=== PATIENT | male | born 1965 | race African-American/Black ===

== ENCOUNTER 2016-11-11 20:18 | Inpatient (IN) | payer OTHER ==
[~2016-11-11] VITALS: Ht 175.3 cm; Wt 70.5 kg
[2016-11-11 20:35] LABS: GLUCOSE,POINT OF CARE 154 MG/DL (70-110)
[2016-11-11] MEDS ORDERED: MULT1CAP32 PO (20:45)
[2016-11-11] MEDS ORDERED: FOLI1 PO (20:45)
[2016-11-11] MEDS ORDERED: CYAN500 PO (20:45)
[2016-11-11] MEDS ORDERED: MAGNESIUM SULFATE 2 GM, MVI, ADULT NO.1 WITH VIT K 10 ML, THIAMINE HCL 100 MG, FOLIC AC... IV ONE ×5 (20:45)
[2016-11-11] MEDS ORDERED: HALO2 PO (20:45)
[2016-11-11] MEDS ORDERED: FERR-89 PO (20:45)
[2016-11-11] MEDS ORDERED: THIA100 PO (20:45)
[2016-11-11 21:01] LABS: BASOPHILS % (AUTO) 0.7 % (0.0-2.0); EOSINOPHILS % (AUTO) 0.7 % (1.0-6.0); HEMATOCRIT 34.4 % (41-53); HEMOGLOBIN 11.2 g/dL (13.5-17.5); LYMPHOCYTES % (AUTO) 13.2 % (22.0-44.0); MEAN CORPUSCULAR HEMOGLOBIN 29.3 pg (26.0-34.0); MEAN CORPUSCULAR HGB CONC 32.4 G/dL (31.0-37.0); MEAN CORPUSCULAR VOLUME 90 fL (80-100); MONOCYTES # (AUTO) 0.3 K/uL (0.1-1.0); MONOCYTES % (AUTO) 4.3 % (2.0-9.0); NEUTROPHILS % (AUTO) 81.1 % (40.0-70.0); PLATELET COUNT (AUTO) 189 K/uL (150-450); RED BLOOD CELL COUNT(AUTO) 3.81 MIL/uL (4.50-5.90); RED CELL DISTRIBUTION WIDTH 14.9 % (11.5-14.5); WHITE BLOOD COUNT (AUTO) 7.3 K/uL (4.5-11.0)
[2016-11-11 21:11] LABS: ANION GAP 24 mmol/L (8-16); CALCIUM, TOTAL 8.9 mg/dL (8.8-10.5); CARBON DIOXIDE 15 mmol/L (22-29); CHLORIDE 94 mmol/L (98-107); CREATININE 1.09 mg/dL (0.60-1.30); GLOMERULAR FILTR. RATE CALC > 60 mL/min (>60); POTASSIUM 3.9 mmol/L (3.5-5.1); SODIUM SERUM 133 mmol/L (136-145); UREA NITROGEN, BLOOD 7 mg/dL (7-18)
[2016-11-11] MEDS ORDERED: OxyCODONE HCL/ACETAMINOPHEN 5-325 MG TABLET PO PRN (21:15)
[2016-11-11] MEDS ORDERED: ACETAMINOPHEN 325 MG TABLET PO PRN (21:15)
[2016-11-11 21:17] LABS: ALANINE AMINOTRANSFERASE 19 U/L (12-78); ALBUMIN 3.7 g/dL (3.4-5.0); ASPARTATE AMINOTRANSFERASE 26 U/L (15-37); BILIRUBIN,TOTAL 0.2 mg/dL (0.1-1.0); TOTAL PROTEIN, SERUM 7.5 g/dL (6.4-8.2)
[2016-11-11] MEDS ORDERED: LORazepam 2 MG/ML VIAL IVP ONE (22:30)
[2016-11-11 23:33] VITALS: BP 122/74
[2016-11-12] MEDS: HEPARIN SODIUM,PORCINE 5,000 UNITS/ML VIAL SQ SCH ×4 (00:01→23:24)
[2016-11-12 04:20] VITALS: BP 122/75
[2016-11-12 07:49] VITALS: BP 130/76
[2016-11-12] MEDS ORDERED: MAGNESIUM SULFATE 2 GM, MVI, ADULT NO.1 WITH VIT K 10 ML, THIAMINE HCL 100 MG, FOLIC AC... IV ONE ×5 (08:45)
[2016-11-12] MEDS: PANTOPRAZOLE SODIUM 40 MG DR TABLET PO SCH (09:42)
[2016-11-12 11:04] VITALS: BP 142/74
[2016-11-12 15:20] VITALS: BP 134/81
[2016-11-12] MEDS: NICOTINE 14 MG/24 HOUR PATCH TD SCH (16:18)
[2016-11-12] MEDS ORDERED: 0.9% SODIUM CHLORIDE 10 ML SYRINGE IVP PRN (18:00)
[2016-11-12 19:37] VITALS: BP 121/81
[2016-11-12] MEDS: LORazepam 2 MG/ML VIAL IVP PRN (20:30)
[2016-11-12 23:30] VITALS: BP 139/88
[2016-11-13 03:32] VITALS: BP 155/94
[2016-11-13] MEDS: LORazepam 2 MG/ML VIAL IVP PRN ×4 (03:48→23:51)
[2016-11-13 07:34] VITALS: BP 156/87
[2016-11-13] MEDS: HEPARIN SODIUM,PORCINE 5,000 UNITS/ML VIAL SQ SCH ×3 (08:15→23:52)
[2016-11-13] MEDS: NICOTINE 14 MG/24 HOUR PATCH TD SCH (08:15)
[2016-11-13] MEDS: HALOPERIDOL 2 MG TABLET PO SCH (08:15)
[2016-11-13] MEDS: PANTOPRAZOLE SODIUM 40 MG DR TABLET PO SCH (08:15)
[2016-11-13 11:01] VITALS: BP 142/89
[2016-11-13 15:30] VITALS: BP 142/96
[2016-11-13 19:36] VITALS: BP 149/89
[2016-11-13 23:45] VITALS: BP 155/91
[2016-11-14 04:04] VITALS: BP 146/75
[2016-11-14] MEDS: LORazepam 2 MG/ML VIAL IVP PRN (04:12)
[2016-11-14 07:55] VITALS: BP 159/103
[2016-11-14] MEDS: HALOPERIDOL 2 MG TABLET PO SCH (08:37)
[2016-11-14] MEDS: PANTOPRAZOLE SODIUM 40 MG DR TABLET PO SCH (08:37)
[2016-11-14] MEDS: NICOTINE 14 MG/24 HOUR PATCH TD SCH (08:38)
[2016-11-14] MEDS: HEPARIN SODIUM,PORCINE 5,000 UNITS/ML VIAL SQ SCH ×3 (08:42→23:50)
[2016-11-14 11:48] VITALS: BP 135/77
[2016-11-14] MEDS: ChlordiazePOXIDE HCL 25 MG CAPSULE PO SCH ×3 (14:03→23:50)
[2016-11-14 15:30] VITALS: BP 123/82
[2016-11-14 19:26] VITALS: BP 132/89
[2016-11-14 23:17] VITALS: BP 138/97
[2016-11-15] MEDS: LORazepam 2 MG/ML VIAL IVP PRN (02:15)
[2016-11-15 03:08] VITALS: BP 141/89
[2016-11-15] MEDS: ChlordiazePOXIDE HCL 25 MG CAPSULE PO SCH ×3 (06:41→19:56)
[2016-11-15 07:37] LABS: BASOPHILS % (AUTO) 0.4 % (0.0-2.0); EOSINOPHILS % (AUTO) 4.2 % (1.0-6.0); HEMATOCRIT 39.4 % (41-53); HEMOGLOBIN 12.9 g/dL (13.5-17.5); LYMPHOCYTES # (AUTO) 1.4 K/uL (1.0-4.8); LYMPHOCYTES % (AUTO) 16.8 % (22.0-44.0); MEAN CORPUSCULAR HEMOGLOBIN 29.5 pg (26.0-34.0); MEAN CORPUSCULAR HGB CONC 32.8 G/dL (31.0-37.0); MEAN CORPUSCULAR VOLUME 90 fL (80-100); MONOCYTES # (AUTO) 0.8 K/uL (0.1-1.0); NEUTROPHILS # (AUTO) 5.7 K/uL (1.8-7.7); NEUTROPHILS % (AUTO) 68.6 % (40.0-70.0); PLATELET COUNT (AUTO) 163 K/uL (150-450); RED BLOOD CELL COUNT(AUTO) 4.39 MIL/uL (4.50-5.90); RED CELL DISTRIBUTION WIDTH 15.4 % (11.5-14.5); WHITE BLOOD COUNT (AUTO) 8.3 K/uL (4.5-11.0)
[2016-11-15 07:49] VITALS: BP 128/83
[2016-11-15 07:52] LABS: ANION GAP 9 mmol/L (8-16); CALCIUM, TOTAL 9.9 mg/dL (8.8-10.5); CARBON DIOXIDE 29 mmol/L (22-29); CHLORIDE 102 mmol/L (98-107); CREATININE 0.94 mg/dL (0.60-1.30); GLOMERULAR FILTR. RATE CALC > 60 mL/min (>60); POTASSIUM 3.5 mmol/L (3.5-5.1); SODIUM SERUM 140 mmol/L (136-145); UREA NITROGEN, BLOOD 9 mg/dL (7-18)
[2016-11-15] MEDS: NICOTINE 14 MG/24 HOUR PATCH TD SCH (08:27)
[2016-11-15] MEDS: HEPARIN SODIUM,PORCINE 5,000 UNITS/ML VIAL SQ SCH ×3 (08:27→23:50)
[2016-11-15] MEDS: HALOPERIDOL 2 MG TABLET PO SCH (08:31)
[2016-11-15] MEDS: PANTOPRAZOLE SODIUM 40 MG DR TABLET PO SCH (08:31)
[2016-11-15 11:28] VITALS: BP 134/85
[2016-11-15 15:08] VITALS: BP 122/79
[2016-11-15 19:30] VITALS: BP 117/78
[2016-11-16 00:36] VITALS: BP 118/77
[2016-11-16 04:32] VITALS: BP 129/87
[2016-11-16 07:37] VITALS: BP 128/79
[2016-11-16] MEDS: HEPARIN SODIUM,PORCINE 5,000 UNITS/ML VIAL SQ SCH ×2 (08:00→16:00)
[2016-11-16] MEDS: HALOPERIDOL 2 MG TABLET PO SCH (09:00)
[2016-11-16] MEDS: PANTOPRAZOLE SODIUM 40 MG DR TABLET PO SCH (09:00)
[2016-11-16] MEDS: ChlordiazePOXIDE HCL 25 MG CAPSULE PO SCH (09:08)
[2016-11-16] MEDS: NICOTINE 14 MG/24 HOUR PATCH TD SCH (09:10)
[2016-11-16 11:04] VITALS: BP 119/95
== END 2016-11-16 19:15 | disposition home or self-care (01) | DRG 53 ==
LOC: EMS 20:18 → 5S 21:19
PROVIDERS: ADMIT Hospitalist; ATTEND Hospitalist
DX: G40.909 Epilepsy, unspecified, not intractable, without status epilepticus (principal); G92 Toxic encephalopathy; F10.229 Alcohol dependence with intoxication, unspecified; E87.1 Hypo-osmolality and hyponatremia; D64.9 Anemia, unspecified; R00.0 Tachycardia, unspecified
CPT/HCPCS: 82962; 93005; 96365; 99285; G0480; J1644; J2060; J3411; J3475; J3490; J7030